=== PATIENT | male | born 1990 | race Caucasian/White ===

== ENCOUNTER 2017-05-26 20:16 | Emergency (ER) | payer OTHER ==
[~2017-05-26] VITALS: Ht 182.9 cm; Wt 56.7 kg
[~2017-05-26 20:16] MED LIST: ACET325; ACYC800 PO; ALBU90OI6 INH; AZIT250 PO; CHLO25 PO; CYCL10 PO; Cleocin HCl300 MG PO; DIPATR PO; ERGO400 PO; HYDACE5 PO; HYDACE5325 PO; HYOS.125; IBUP200; IBUP600 PO; LOPE2C PO; LORA.5 PO; LYSINE PO; MONT5TCH; ONDA4 PO; ONDA4ODT MM; ONDA8ODT MM; OXYACE5T PO; Omeprazole20 M1 PO; PENVK500; PROM25 PO; RXALBOI INH; RXHYD5325 PO; RXHYDGUAS PO; RXONDA4ODT MM; RXOXYACE PO; RXTRAM50 PO; TRAM50 PO; TYLENOL PM PO; Zithromax250 MG PO; Zofran Odt4 MG PO; Zofran Odt4 MG SL; [UNRECOGNIZED DRUG - CODE]; [UNRECOGNIZED DRUG - OTHER]; [UNRECOGNIZED DRUG - REMARK]; imodium PO
[2017-05-26 22:40] LABS: Calcium, Ionized (POC) 1.24 mmol/L (1.10-1.46); Chloride (POC) 103 mmol/L (98-108); Creatinine (POC) 0.7 mg/dL (0.8-1.3); Glucose (ISTAT POC) 90 mg/dL (70-99); Hemoglobin (POC) 14.6 g/dL (13.5-17.5); Potassium (POC) 4.8 mmol/L (3.5-5.5); Sodium (POC) 143 mmol/L (135-148); Total CO2 (POC) 29 mmol/L (21-32)
== END 2017-05-26 23:20 | disposition home or self-care (01) ==
LOC: ER 20:16
PROVIDERS: Emergency Medicine
DX: R42 Dizziness and giddiness (principal); R51 Headache; H53.8 Other visual disturbances; G93.89 Other specified disorders of brain; Z88.0 Allergy status to penicillin; Z88.8 Allergy status to other drugs, medicaments and biological substances; Z79.899 Other long term (current) drug therapy; F41.9 Anxiety disorder, unspecified
CPT/HCPCS: 36415; 70450; 80047; 85014; 99284

== ENCOUNTER 2017-11-15 15:06 | Emergency (ER) | payer OTHER ==
[~2017-11-15] VITALS: Ht 182.9 cm; Wt 54.4 kg
[2017-11-15 15:28] LABS: Source, Urine Clean Catch
[2017-11-15 15:29] LABS: BASOPHILS ABSOLUTE AUTO 0.07 K/mm3 (0.00-0.23); BASOPHILS PERCENT AUTO 1 % (0-2); EOSINOPHILS ABSOLUTE AUTO 0.08 K/mm3 (0.00-0.68); EOSINOPHILS PERCENT AUTO 1 % (0-6); Hematocrit 44.5 % (37.0-53.0); IMMATURE GRAN ABSOLUTE AUTO 0.01 K/mm3 (0.00-0.10); IMMATURE GRAN PERCENT AUTO 0 % (0-1); LYMPHOCYTES PERCENT AUTO 30 % (21-46); MONOCYTES ABSOLUTE AUTO 0.42 K/mm3 (0.16-1.47); MONOCYTES PERCENT AUTO 6 % (4-13); Mean Corpuscular HGB 30.1 pg (26.0-34.0); Mean Corpuscular HGB Conc 33.7 g/dL (31.5-36.5); Mean Corpuscular Volume 89 fL (80-100); Mean Platelet Volume 10.4 fL (9.1-12.4); NEUTROPHILS ABSOLUTE AUTO 4.07 K/mm3 (1.96-9.15); NEUTROPHILS PERCENT AUTO 61 % (41-73); Platelet Count 297 K/mm3 (150-400); RDW Coefficient Variation 12.2 % (11.7-14.2); RDW Standard Deviation 39.7 fL (35.1-46.3); Red Blood Cell Count 4.98 M/mm3 (4.30-5.90); White Blood Cell Count 6.65 K/mm3 (4.00-11.30)
[2017-11-15 15:31] LABS: Appearance, Urine Cloudy (Clear); Bilirubin, Urine Neg (Neg); Blood, Urine Neg (Neg); Color, Urine Yellow (P-Yellow); Glucose Qualitative, Urine Neg (Neg); Ketones, Urine Neg (Neg); Leukocyte Esterase, Urine Neg (Neg); Nitrite, Urine Neg (Neg); Protein, Urine Neg (Neg); Specific Gravity, Urine 1.015 (1.003-1.022); Urobilinogen, Urine NORM (Normal)
[2017-11-15 15:40] LABS: Amorphous Heavy (0-Heavy); Bacteria Rare /hpf; Red Blood Cells, Urine Not Seen /hpf (0-2); Squamous Epithelial Cells Not Seen /hpf (Few); White Blood Cells, Urine Not Seen /hpf (0-5)
[2017-11-15 16:01] LABS: Alanine Aminotransfer (ALT/SGP 29 U/L (12-78); Albumin, Blood 4.5 g/dL (3.4-5.0); Albumin/Globulin Ratio 1.5 (0.8-1.8); Alk Phos 45 U/L (50-136); Anion Gap 5 mmol/L (6-16); Aspartate Aminotrans (AST/SGOT 18 U/L (12-37); Blood Urea Nitrogen 10 mg/dL (8-24); CO2, Blood 30 mmol/L (21-32); Chloride, Blood 106 mmol/L (98-108); Creatinine, Blood 0.91 mg/dL (0.60-1.20); Globulin, Blood 3.1 g/dL (2.2-4.0); Glomerular Filtration Rate >60 (60-); Glucose, Blood 109 mg/dL (70-99); Potassium, Blood 4.6 mmol/L (3.5-5.5); Sodium, Blood 141 mmol/L (136-145); Total Protein, Blood 7.6 g/dL (6.4-8.2)
[2017-11-15] MEDS ORDERED: DESV50 PO (16:30)
[2017-11-15] MEDS ORDERED: ALPR.25 PO (16:31)
[2017-11-15] MEDS ORDERED: Loperamide2 MG PO (19:22)
== END 2017-11-15 19:49 | disposition home or self-care (01) ==
LOC: ER 15:06
PROVIDERS: Internal Medicine
DX: K52.9 Noninfective gastroenteritis and colitis, unspecified (principal); F41.9 Anxiety disorder, unspecified; F17.220 Nicotine dependence, chewing tobacco, uncomplicated; Z79.899 Other long term (current) drug therapy
CPT/HCPCS: 36415; 76705; 80053; 81001; 83690; 85025; 99284-25

== ENCOUNTER 2018-10-02 21:27 | Emergency (ER) | payer OTHER ==
[~2018-10-02] VITALS: Ht 182.9 cm; Wt 54.4 kg
[~2018-10-02 21:27] MED LIST changes: +ALPR.25 PO; +DESV50 PO; +Loperamide2 MG PO
== END 2018-10-02 23:23 | disposition home or self-care (01) ==
LOC: ER 21:27
DX: I88.9 Nonspecific lymphadenitis, unspecified (principal); F41.9 Anxiety disorder, unspecified; Z88.0 Allergy status to penicillin
CPT/HCPCS: 36415; 99282

== ENCOUNTER → 2018-11-19 | Outpatient (CLI) | payer OTHER ==
[2018-11-19 14:40] LABS: U Amphetamine Screen Not Detected; U Barbituate Screen Not Detected; U Benzodiazapine Screen Not Detected; U Buprenorphine Screen Not Detected; U Cannabinoids Screen DETECTED; U Cocaine Screen Not Detected; U Methadone Screen Not Detected; U Methamphetamine Screen Not Detected; U Opiates Screen Not Detected; U Oxycodone Screen Not Detected; U Phencyclidine Screen Not Detected; U Propoxyphene Screen Not Detected
== END | disposition home or self-care (01) ==
LOC: LAB SHORT 10:00 → LAB 10:00
PROVIDERS: Registered Nurse Psychiatric/Mental Health
DX: Z51.81 Encounter for therapeutic drug level monitoring (principal); Z79.899 Other long term (current) drug therapy

== ENCOUNTER 2019-02-08 12:08 | Emergency (ER) | payer OTHER ==
[~2019-02-08] VITALS: Ht 182.9 cm; Wt 54.4 kg
[2019-02-08 13:00] LABS: BASOPHILS ABSOLUTE AUTO 0.08 K/mm3 (0.00-0.23); BASOPHILS PERCENT AUTO 1 % (0-2); EOSINOPHILS ABSOLUTE AUTO 0.08 K/mm3 (0.00-0.68); EOSINOPHILS PERCENT AUTO 1 % (0-6); Hematocrit 45.9 % (37.0-53.0); Hemoglobin 15.2 g/dL (13.5-17.5); IMMATURE GRAN ABSOLUTE AUTO 0.01 K/mm3 (0.00-0.10); IMMATURE GRAN PERCENT AUTO 0 % (0-1); LYMPHOCYTES ABSOLUTE AUTO 0.83 K/mm3 (0.84-5.20); LYMPHOCYTES PERCENT AUTO 12 % (21-46); MONOCYTES ABSOLUTE AUTO 0.67 K/mm3 (0.16-1.47); MONOCYTES PERCENT AUTO 10 % (4-13); Mean Corpuscular HGB 29.9 pg (26.0-34.0); Mean Corpuscular HGB Conc 33.1 g/dL (31.5-36.5); Mean Corpuscular Volume 90 fL (80-100); Mean Platelet Volume 10.2 fL (9.1-12.4); NEUTROPHILS ABSOLUTE AUTO 5.41 K/mm3 (1.96-9.15); NEUTROPHILS PERCENT AUTO 77 % (41-73); Platelet Count 256 K/mm3 (150-400); RDW Coefficient Variation 12.4 % (11.7-14.2); RDW Standard Deviation 40.8 fL (35.1-46.3); Red Blood Cell Count 5.09 M/mm3 (4.30-5.90); White Blood Cell Count 7.08 K/mm3 (4.00-11.30)
[2019-02-08 13:28] LABS: Alanine Aminotransfer (ALT/SGP 59 U/L (12-78); Albumin, Blood 4.7 g/dL (3.4-5.0); Albumin/Globulin Ratio 1.3 (0.8-1.8); Alk Phos 53 U/L (50-136); Anion Gap 5 mmol/L (6-16); Aspartate Aminotrans (AST/SGOT 30 U/L (12-37); Bilirubin, Total 0.7 mg/dL (0.1-1.0); Blood Urea Nitrogen 8 mg/dL (8-24); Bun/Creatinine Ratio 10.1 (12.0-20.0); CO2, Blood 27 mmol/L (21-32); Calcium, Blood 9.2 mg/dL (8.5-10.1); Chloride, Blood 109 mmol/L (98-108); Creatinine, Blood 0.79 mg/dL (0.60-1.20); Globulin, Blood 3.5 g/dL (2.2-4.0); Glomerular Filtration Rate >60 (60-); Glucose, Blood 94 mg/dL (70-99); Potassium, Blood 4.2 mmol/L (3.5-5.5); Sodium, Blood 141 mmol/L (136-145); Total Protein, Blood 8.2 g/dL (6.4-8.2)
== END 2019-02-08 15:37 | disposition left against medical advice (07) ==
LOC: ER 12:08
PROVIDERS: Physician Assistant
DX: Z53.21 Procedure and treatment not carried out due to patient leaving prior to being seen by health care provider (principal)
CPT/HCPCS: 36415; 71046; 80053; 84484; 85025; 99283-25

== ENCOUNTER 2019-07-17 12:37 | Emergency (ER) | payer OTHER ==
[~2019-07-17] VITALS: Ht 182.9 cm; Wt 56.7 kg
[2019-07-17] MEDS ORDERED: METPHE20 PO (15:31)
[2019-07-17] MEDS ORDERED: XANAX0.25 MG PO (15:31)
[2019-07-17] MEDS ORDERED: OMEPRAZOLE MAGN20 MG PO (16:04)
== END 2019-07-17 16:18 | disposition home or self-care (01) ==
LOC: ER 12:37
DX: R07.9 Chest pain, unspecified (principal); Z88.0 Allergy status to penicillin; F41.9 Anxiety disorder, unspecified; Z79.899 Other long term (current) drug therapy
CPT/HCPCS: 36415; 71046; 84484; 93005; 93010; 99285-25

== ENCOUNTER → 2020-08-04 | Outpatient (CLI) | payer OTHER ==
[~2020-08-04] MED LIST changes: +METPHE20 PO; +OMEPRAZOLE MAGN20 MG PO; +XANAX0.25 MG PO
[2020-08-04 16:23] LABS: BASOPHILS ABSOLUTE AUTO 0.08 K/mm3 (0.00-0.23); BASOPHILS PERCENT AUTO 1 % (0-2); EOSINOPHILS ABSOLUTE AUTO 0.14 K/mm3 (0.00-0.68); EOSINOPHILS PERCENT AUTO 2 % (0-6); Hematocrit 44.8 % (37.0-53.0); Hemoglobin 15.2 g/dL (13.5-17.5); IMMATURE GRAN ABSOLUTE AUTO 0.02 K/mm3 (0.00-0.10); IMMATURE GRAN PERCENT AUTO 0 % (0-1); LYMPHOCYTES ABSOLUTE AUTO 1.97 K/mm3 (0.84-5.20); LYMPHOCYTES PERCENT AUTO 24 % (21-46); MONOCYTES ABSOLUTE AUTO 0.53 K/mm3 (0.16-1.47); MONOCYTES PERCENT AUTO 6 % (4-13); Mean Corpuscular HGB 30.6 pg (26.0-34.0); Mean Corpuscular HGB Conc 33.9 g/dL (31.5-36.5); Mean Corpuscular Volume 90 fL (80-100); Mean Platelet Volume 10.2 fL (9.1-12.4); NEUTROPHILS ABSOLUTE AUTO 5.65 K/mm3 (1.96-9.15); NEUTROPHILS PERCENT AUTO 67 % (41-73); Platelet Count 311 K/mm3 (150-400); RDW Coefficient Variation 12.3 % (11.7-14.2); RDW Standard Deviation 40.2 fL (35.1-46.3); Red Blood Cell Count 4.97 M/mm3 (4.30-5.90); White Blood Cell Count 8.39 K/mm3 (4.00-11.30)
[2020-08-04 16:36] LABS: Alanine Aminotransfer (ALT/SGP 23 U/L (12-78); Albumin, Blood 4.8 g/dL (3.4-5.0); Albumin/Globulin Ratio 1.5 (0.8-1.8); Alk Phos 49 U/L (40-126); Anion Gap 5 mmol/L (6-16); Aspartate Aminotrans (AST/SGOT 16 U/L (12-37); Bilirubin, Total 0.4 mg/dL (0.1-1.0); Blood Urea Nitrogen 9 mg/dL (8-24); Bun/Creatinine Ratio 11.4 (12.0-20.0); CO2, Blood 32 mmol/L (21-32); Calcium, Blood 9.6 mg/dL (8.5-10.1); Chloride, Blood 102 mmol/L (98-108); Creatinine, Blood 0.79 mg/dL (0.60-1.20); Globulin, Blood 3.1 g/dL (2.2-4.0); Glomerular Filtration Rate >60 (60-); Glucose, Blood 87 mg/dL (70-99); Potassium, Blood 4.4 mmol/L (3.5-5.5); Sodium, Blood 139 mmol/L (136-145); Total Protein, Blood 7.9 g/dL (6.4-8.2)
== END ==
LOC: LAB SHORT 16:17 → LAB 16:17
PROVIDERS: Chiropractor
DX: R10.11 Right upper quadrant pain (principal)
CPT/HCPCS: 80053; 83690; 85025

== ENCOUNTER 2020-08-18 19:35 | Emergency (ER) | payer MEDICARE, OTHER ==
[~2020-08-18] VITALS: Ht 182.9 cm; Wt 56.7 kg
[2020-08-18 20:12] LABS: BASOPHILS ABSOLUTE AUTO 0.07 K/mm3 (0.00-0.23); BASOPHILS PERCENT AUTO 1 % (0-2); EOSINOPHILS ABSOLUTE AUTO 0.08 K/mm3 (0.00-0.68); EOSINOPHILS PERCENT AUTO 1 % (0-6); Hematocrit 42.3 % (37.0-53.0); Hemoglobin 14.4 g/dL (13.5-17.5); IMMATURE GRAN ABSOLUTE AUTO 0.01 K/mm3 (0.00-0.10); IMMATURE GRAN PERCENT AUTO 0 % (0-1); LYMPHOCYTES ABSOLUTE AUTO 2.23 K/mm3 (0.84-5.20); LYMPHOCYTES PERCENT AUTO 28 % (21-46); MONOCYTES ABSOLUTE AUTO 0.62 K/mm3 (0.16-1.47); MONOCYTES PERCENT AUTO 8 % (4-13); Mean Corpuscular HGB 30.9 pg (26.0-34.0); Mean Corpuscular Volume 91 fL (80-100); Mean Platelet Volume 10.2 fL (9.1-12.4); NEUTROPHILS ABSOLUTE AUTO 5.04 K/mm3 (1.96-9.15); NEUTROPHILS PERCENT AUTO 63 % (41-73); Platelet Count 260 K/mm3 (150-400); RDW Coefficient Variation 12.3 % (11.7-14.2); RDW Standard Deviation 40.5 fL (35.1-46.3); Red Blood Cell Count 4.66 M/mm3 (4.30-5.90); White Blood Cell Count 8.05 K/mm3 (4.00-11.30)
[2020-08-18 20:31] LABS: Alanine Aminotransfer (ALT/SGP 25 U/L (12-78); Albumin, Blood 4.4 g/dL (3.4-5.0); Albumin/Globulin Ratio 1.4 (0.8-1.8); Alk Phos 38 U/L (50-136); Anion Gap 6 mmol/L (6-16); Aspartate Aminotrans (AST/SGOT 20 U/L (12-37); Bilirubin, Total 0.7 mg/dL (0.1-1.0); Blood Urea Nitrogen 12 mg/dL (8-24); Bun/Creatinine Ratio 13.5 (12.0-20.0); CO2, Blood 28 mmol/L (21-32); Calcium, Blood 9.5 mg/dL (8.5-10.1); Chloride, Blood 108 mmol/L (98-108); Creatinine, Blood 0.89 mg/dL (0.60-1.20); Globulin, Blood 3.2 g/dL (2.2-4.0); Glomerular Filtration Rate >60 (60-); Glucose, Blood 84 mg/dL (70-99); Potassium, Blood 3.7 mmol/L (3.5-5.5); Sodium, Blood 142 mmol/L (136-145); Total Protein, Blood 7.6 g/dL (6.4-8.2)
== END 2020-08-18 23:24 | disposition home or self-care (01) ==
LOC: ER 19:35
PROVIDERS: Physician Assistant
DX: K29.70 Gastritis, unspecified, without bleeding (principal); F17.220 Nicotine dependence, chewing tobacco, uncomplicated; Z88.0 Allergy status to penicillin; Z88.8 Allergy status to other drugs, medicaments and biological substances; Z79.899 Other long term (current) drug therapy
CPT/HCPCS: 36415; 80053; 83690; 85025; 99283; A9270

== ENCOUNTER 2020-09-11 21:33 | Emergency (ER) | payer MEDICARE, OTHER | END 2020-09-12 00:10 | disposition left against medical advice (07) | LOC: ER 21:33 | DX: Z53.21 Procedure and treatment not carried out due to patient leaving prior to being seen by health care provider (principal) ==

== ENCOUNTER 2020-10-12 12:16 | Emergency (ER) | payer MEDICARE, OTHER ==
[~2020-10-12] VITALS: Ht 182.9 cm; Wt 55.3 kg
[2020-10-12 13:18] LABS: BASOPHILS ABSOLUTE AUTO 0.09 K/mm3 (0.00-0.23); BASOPHILS PERCENT AUTO 1 % (0-2); EOSINOPHILS ABSOLUTE AUTO 0.08 K/mm3 (0.00-0.68); EOSINOPHILS PERCENT AUTO 1 % (0-6); Hematocrit 44.1 % (37.0-53.0); IMMATURE GRAN ABSOLUTE AUTO 0.02 K/mm3 (0.00-0.10); IMMATURE GRAN PERCENT AUTO 0 % (0-1); LYMPHOCYTES ABSOLUTE AUTO 2.06 K/mm3 (0.84-5.20); LYMPHOCYTES PERCENT AUTO 26 % (21-46); MONOCYTES ABSOLUTE AUTO 0.62 K/mm3 (0.16-1.47); MONOCYTES PERCENT AUTO 8 % (4-13); Mean Corpuscular HGB 30.1 pg (26.0-34.0); Mean Corpuscular Volume 88 fL (80-100); Mean Platelet Volume 10.4 fL (9.1-12.4); NEUTROPHILS PERCENT AUTO 64 % (41-73); Platelet Count 276 K/mm3 (150-400); RDW Coefficient Variation 11.7 % (11.7-14.2); RDW Standard Deviation 37.2 fL (35.1-46.3); Red Blood Cell Count 4.99 M/mm3 (4.30-5.90); White Blood Cell Count 7.97 K/mm3 (4.00-11.30)
[2020-10-12 13:45] LABS: Alanine Aminotransfer (ALT/SGP 29 U/L (12-78); Albumin, Blood 4.7 g/dL (3.4-5.0); Albumin/Globulin Ratio 1.4 (0.8-1.8); Alk Phos 51 U/L (50-136); Anion Gap 4 mmol/L (6-16); Aspartate Aminotrans (AST/SGOT 19 U/L (12-37); Bilirubin, Total 0.5 mg/dL (0.1-1.0); Blood Urea Nitrogen 9 mg/dL (8-24); Bun/Creatinine Ratio 11.2 (12.0-20.0); CO2, Blood 28 mmol/L (21-32); Chloride, Blood 107 mmol/L (98-108); Creatinine, Blood 0.81 mg/dL (0.60-1.20); Globulin, Blood 3.4 g/dL (2.2-4.0); Glomerular Filtration Rate >60 (60-); Glucose, Blood 89 mg/dL (70-99); Potassium, Blood 3.9 mmol/L (3.5-5.5); Sodium, Blood 139 mmol/L (136-145); Total Protein, Blood 8.1 g/dL (6.4-8.2)
[2020-10-12] MEDS ORDERED: SUCR1 PO (13:46)
[2020-10-12] MEDS ORDERED: DICY20 PO (13:46)
== END 2020-10-12 14:40 | disposition home or self-care (01) ==
LOC: ER 12:16
PROVIDERS: Emergency Medicine
DX: R10.11 Right upper quadrant pain (principal); R10.13 Epigastric pain; R19.7 Diarrhea, unspecified; Z88.0 Allergy status to penicillin; Z88.8 Allergy status to other drugs, medicaments and biological substances; Z79.899 Other long term (current) drug therapy
CPT/HCPCS: 36415; 80053; 83690; 85025; 99283; A9270

== ENCOUNTER 2021-04-19 06:52 | Day surgery (SDC) | payer MEDICARE, OTHER ==
[~2021-04-19] VITALS: Ht 182.9 cm; Wt 57.0 kg
[~2021-04-19 06:52] MED LIST changes: +Bentyl20 MG PO; +DICY20 PO; +OMEP20ER PO; +SERT50 PO; +SUCR1 PO
[2021-04-19] MEDS ORDERED: ALPR.5 PO (07:15)
== END 2021-04-19 09:25 | disposition home or self-care (01) ==
LOC: ORSCSDS 06:52
PROVIDERS: Student in an Organized Health Care Education/Training Program
PROC: 0DB78ZX Excision of Stomach, Pylorus, Via Natural or Artificial Opening Endoscopic, Diagnostic (ICD-10-PCS; principal; 2021-04-19 08:15)
PROC: 0DBP8ZX Excision of Rectum, Via Natural or Artificial Opening Endoscopic, Diagnostic (ICD-10-PCS; principal; 2021-04-19 08:15)
PROC: 0DB98ZX Excision of Duodenum, Via Natural or Artificial Opening Endoscopic, Diagnostic (ICD-10-PCS; principal; 2021-04-19 08:15)
PROC: 0DBE8ZX Excision of Large Intestine, Via Natural or Artificial Opening Endoscopic, Diagnostic (ICD-10-PCS; principal; 2021-04-19 08:15)
PROC: 0DB58ZX Excision of Esophagus, Via Natural or Artificial Opening Endoscopic, Diagnostic (ICD-10-PCS; principal; 2021-04-19 08:15)
DX: K92.1 Melena (principal); R19.7 Diarrhea, unspecified; K58.0 Irritable bowel syndrome with diarrhea; D12.8 Benign neoplasm of rectum; K64.8 Other hemorrhoids; K64.4 Residual hemorrhoidal skin tags; F31.9 Bipolar disorder, unspecified; Z79.899 Other long term (current) drug therapy; Z87.891 Personal history of nicotine dependence
CPT/HCPCS: 88305; 88342; J2250; J2704; J7120

== ENCOUNTER 2021-10-06 11:22 | Emergency (ER) | payer MEDICARE, OTHER ==
[~2021-10-06] VITALS: Ht 182.9 cm; Wt 57.6 kg
[~2021-10-06 11:22] MED LIST changes: +ALPR.5 PO
[2021-10-06 12:22] LABS: BASOPHILS ABSOLUTE AUTO 0.06 K/mm3 (0.00-0.23); BASOPHILS PERCENT AUTO 1 % (0-2); EOSINOPHILS ABSOLUTE AUTO 0.15 K/mm3 (0.00-0.68); EOSINOPHILS PERCENT AUTO 3 % (0-6); Hematocrit 45.7 % (37.0-53.0); Hemoglobin 15.4 g/dL (13.5-17.5); IMMATURE GRAN ABSOLUTE AUTO 0.01 K/mm3 (0.00-0.10); IMMATURE GRAN PERCENT AUTO 0 % (0-1); LYMPHOCYTES ABSOLUTE AUTO 1.45 K/mm3 (0.84-5.20); LYMPHOCYTES PERCENT AUTO 27 % (21-46); MONOCYTES PERCENT AUTO 7 % (4-13); Mean Corpuscular HGB 30.1 pg (26.0-34.0); Mean Corpuscular HGB Conc 33.7 g/dL (31.5-36.5); Mean Corpuscular Volume 89 fL (80-100); Mean Platelet Volume 10.1 fL (9.1-12.4); NEUTROPHILS PERCENT AUTO 62 % (41-73); Platelet Count 284 K/mm3 (150-400); RDW Coefficient Variation 12.3 % (11.7-14.2); RDW Standard Deviation 40.3 fL (35.1-46.3); Red Blood Cell Count 5.11 M/mm3 (4.30-5.90); White Blood Cell Count 5.37 K/mm3 (4.00-11.30)
[2021-10-06 12:46] LABS: Albumin, Blood 4.3 g/dL (3.4-5.0); Albumin/Globulin Ratio 1.2 (0.8-1.8); Bilirubin, Total 0.5 mg/dL (0.1-1.0); Bun/Creatinine Ratio 12.5 (12.0-20.0); Calcium, Blood 8.8 mg/dL (8.5-10.1); Creatinine, Blood 0.88 mg/dL (0.60-1.20); Globulin, Blood 3.5 g/dL (2.2-4.0); Potassium, Blood 4.2 mmol/L (3.5-5.5); Thyroid Stimulating Hormone 0.874 uIU/mL (0.360-4.800); Total Protein, Blood 7.8 g/dL (6.4-8.2)
== END 2021-10-06 13:24 | disposition left against medical advice (07) ==
LOC: ER 11:22
PROVIDERS: Physician Assistant
DX: R00.2 Palpitations (principal); Z53.21 Procedure and treatment not carried out due to patient leaving prior to being seen by health care provider
CPT/HCPCS: 71046; 80053; 83690; 83880; 84443; 84484; 85025; 93005; 93010

== ENCOUNTER 2021-10-08 19:12 | Emergency (ER) | payer MEDICARE, OTHER ==
[~2021-10-08] VITALS: Ht 182.9 cm; Wt 57.6 kg
[2021-10-08 23:45] LABS: Source, Urine Clean Catch
[2021-10-08 23:47] LABS: Appearance, Urine Turbid (Clear); Bilirubin, Urine Neg (Neg); Blood, Urine Neg (Neg); Glucose Qualitative, Urine Neg (Neg); Ketones, Urine Neg (Neg); Leukocyte Esterase, Urine Neg (Neg); Nitrite, Urine Neg (Neg); Protein, Urine Neg (Neg); Urobilinogen, Urine NORM (Normal)
[2021-10-08 23:55] LABS: BASOPHILS ABSOLUTE AUTO 0.09 K/mm3 (0.00-0.23); BASOPHILS PERCENT AUTO 1 % (0-2); EOSINOPHILS ABSOLUTE AUTO 0.23 K/mm3 (0.00-0.68); EOSINOPHILS PERCENT AUTO 3 % (0-6); Hematocrit 46.1 % (37.0-53.0); Hemoglobin 15.7 g/dL (13.5-17.5); IMMATURE GRAN ABSOLUTE AUTO 0.02 K/mm3 (0.00-0.10); IMMATURE GRAN PERCENT AUTO 0 % (0-1); LYMPHOCYTES ABSOLUTE AUTO 3.21 K/mm3 (0.84-5.20); LYMPHOCYTES PERCENT AUTO 35 % (21-46); MONOCYTES ABSOLUTE AUTO 0.82 K/mm3 (0.16-1.47); MONOCYTES PERCENT AUTO 9 % (4-13); Mean Corpuscular HGB 30.5 pg (26.0-34.0); Mean Corpuscular HGB Conc 34.1 g/dL (31.5-36.5); Mean Corpuscular Volume 90 fL (80-100); NEUTROPHILS ABSOLUTE AUTO 4.81 K/mm3 (1.96-9.15); NEUTROPHILS PERCENT AUTO 52 % (41-73); Platelet Count 307 K/mm3 (150-400); RDW Coefficient Variation 12.2 % (11.7-14.2); RDW Standard Deviation 40.4 fL (35.1-46.3); Red Blood Cell Count 5.14 M/mm3 (4.30-5.90); White Blood Cell Count 9.18 K/mm3 (4.00-11.30)
[2021-10-08 23:57] LABS: Color, Urine Pale Yellow (P-Yellow)
[2021-10-09 00:14] LABS: Albumin, Blood 4.7 g/dL (3.4-5.0); Albumin/Globulin Ratio 1.3 (0.8-1.8); Bilirubin, Total 0.6 mg/dL (0.1-1.0); Bun/Creatinine Ratio 13.5 (12.0-20.0); Calcium, Blood 9.1 mg/dL (8.5-10.1); Creatinine, Blood 0.81 mg/dL (0.60-1.20); Globulin, Blood 3.5 g/dL (2.2-4.0); Total Protein, Blood 8.2 g/dL (6.4-8.2)
[2021-10-09 00:25] LABS: Amorphous Heavy (0-Heavy); Bacteria Rare /hpf; Red Blood Cells, Urine 0-2 /hpf (0-2); Squamous Epithelial Cells Not Seen /hpf (Few); White Blood Cells, Urine 0-2 /hpf (0-5)
== END 2021-10-09 03:11 | disposition home or self-care (01) ==
LOC: ER 19:12
PROVIDERS: Student in an Organized Health Care Education/Training Program
DX: R00.2 Palpitations (principal); R55 Syncope and collapse; Z88.0 Allergy status to penicillin; Z88.8 Allergy status to other drugs, medicaments and biological substances; Z79.899 Other long term (current) drug therapy
CPT/HCPCS: 36415; 71046; 80053; 81001; 84484; 85025; 93005; 93010; 99285-25

== ENCOUNTER → 2021-10-10 | Outpatient (CLI) | payer MEDICARE, OTHER | END | disposition home or self-care (01) | LOC: LAB SHORT 13:30 | DX: R35.0 Frequency of micturition (principal) | CPT/HCPCS: 87086 ==

== ENCOUNTER → 2022-04-09 | Outpatient (CLI) | payer MEDICARE, OTHER ==
[2022-04-09 11:23] LABS: BASOPHILS ABSOLUTE AUTO 0.06 K/mm3 (0.00-0.23); BASOPHILS PERCENT AUTO 1 % (0-2); EOSINOPHILS ABSOLUTE AUTO 0.22 K/mm3 (0.00-0.68); EOSINOPHILS PERCENT AUTO 4 % (0-6); Hematocrit 43.2 % (37.0-53.0); Hemoglobin 14.9 g/dL (13.5-17.5); IMMATURE GRAN ABSOLUTE AUTO 0.01 K/mm3 (0.00-0.10); IMMATURE GRAN PERCENT AUTO 0 % (0-1); LYMPHOCYTES ABSOLUTE AUTO 1.81 K/mm3 (0.84-5.20); LYMPHOCYTES PERCENT AUTO 29 % (21-46); MONOCYTES ABSOLUTE AUTO 0.41 K/mm3 (0.16-1.47); MONOCYTES PERCENT AUTO 7 % (4-13); Mean Corpuscular HGB 30.6 pg (26.0-34.0); Mean Corpuscular HGB Conc 34.5 g/dL (31.5-36.5); Mean Corpuscular Volume 89 fL (80-100); Mean Platelet Volume 9.9 fL (9.1-12.4); NEUTROPHILS ABSOLUTE AUTO 3.68 K/mm3 (1.96-9.15); NEUTROPHILS PERCENT AUTO 59 % (41-73); Platelet Count 384 K/mm3 (150-400); RDW Coefficient Variation 12.4 % (11.7-14.2); RDW Standard Deviation 40.6 fL (35.1-46.3); Red Blood Cell Count 4.87 M/mm3 (4.30-5.90); White Blood Cell Count 6.19 K/mm3 (4.00-11.30)
[2022-04-09 11:32] LABS: Albumin, Blood 4.7 g/dL (3.4-5.0); Albumin/Globulin Ratio 1.4 (0.8-1.8); Bilirubin, Total 0.7 mg/dL (0.1-1.0); Calcium, Blood 9.5 mg/dL (8.5-10.1); Creatinine, Blood 0.8 mg/dL (0.60-1.20); Globulin, Blood 3.4 g/dL (2.2-4.0); Potassium, Blood 4.1 mmol/L (3.5-5.5); Total Protein, Blood 8.1 g/dL (6.4-8.2)
== END ==
LOC: LAB 11:18 → LAB SHORT 11:18
PROVIDERS: Physician Assistant Medical
DX: R10.11 Right upper quadrant pain (principal); R53.83 Other fatigue
CPT/HCPCS: 80053; 84443; 85025

== ENCOUNTER 2022-04-25 11:51 | Emergency (ER) | payer MEDICARE, OTHER ==
[~2022-04-25] VITALS: Ht 182.9 cm; Wt 54.4 kg
== END 2022-04-25 13:27 | disposition home or self-care (01) ==
LOC: ER 11:51
DX: G43.909 Migraine, unspecified, not intractable, without status migrainosus (principal)
CPT/HCPCS: 99282

== ENCOUNTER 2022-04-29 19:46 | Emergency (ER) | payer MEDICARE, OTHER ==
[~2022-04-29] VITALS: Ht 182.9 cm; Wt 53.1 kg
[2022-04-29 20:19] LABS: Source, Urine Clean Catch
[2022-04-29 20:21] LABS: BASOPHILS ABSOLUTE AUTO 0.12 K/mm3 (0.00-0.23); BASOPHILS PERCENT AUTO 1 % (0-2); EOSINOPHILS ABSOLUTE AUTO 0.29 K/mm3 (0.00-0.68); EOSINOPHILS PERCENT AUTO 3 % (0-6); Hematocrit 41.5 % (37.0-53.0); Hemoglobin 14.3 g/dL (13.5-17.5); IMMATURE GRAN ABSOLUTE AUTO 0.01 K/mm3 (0.00-0.10); IMMATURE GRAN PERCENT AUTO 0 % (0-1); LYMPHOCYTES ABSOLUTE AUTO 2.96 K/mm3 (0.84-5.20); LYMPHOCYTES PERCENT AUTO 33 % (21-46); MONOCYTES PERCENT AUTO 8 % (4-13); Mean Corpuscular HGB 30.4 pg (26.0-34.0); Mean Corpuscular HGB Conc 34.5 g/dL (31.5-36.5); Mean Corpuscular Volume 88 fL (80-100); NEUTROPHILS ABSOLUTE AUTO 4.96 K/mm3 (1.96-9.15); NEUTROPHILS PERCENT AUTO 55 % (41-73); Platelet Count 270 K/mm3 (150-400); RDW Coefficient Variation 12.4 % (11.7-14.2); RDW Standard Deviation 40.2 fL (35.1-46.3); Red Blood Cell Count 4.71 M/mm3 (4.30-5.90); White Blood Cell Count 9.04 K/mm3 (4.00-11.30)
[2022-04-29 20:30] LABS: Bilirubin, Urine Neg (Neg); Blood, Urine Neg (Neg); Glucose Qualitative, Urine Neg (Neg); Ketones, Urine Neg (Neg); Leukocyte Esterase, Urine Neg (Neg); Nitrite, Urine Neg (Neg); Protein, Urine Neg (Neg); Urobilinogen, Urine NORM (Normal)
[2022-04-29 20:45] LABS: Appearance, Urine Hazy (Clear); Color, Urine Yellow (P-Yellow)
[2022-04-29 20:47] LABS: Amorphous Mod (0-Heavy); Bacteria Not Seen /hpf; Red Blood Cells, Urine 0-2 /hpf (0-2); Squamous Epithelial Cells Not Seen /hpf (Few); White Blood Cells, Urine 0-2 /hpf (0-5)
[2022-04-29 21:11] LABS: Acetaminophen, Random <2.0 ug/mL (10.0-30.0); Alanine Aminotransfer (ALT/SGP 39 U/L (12-78); Albumin, Blood 4.4 g/dL (3.4-5.0); Albumin/Globulin Ratio 1.5 (0.8-1.8); Alk Phos 58 U/L (50-136); Anion Gap 5 mmol/L (6-16); Aspartate Aminotrans (AST/SGOT 23 U/L (12-37); Bilirubin, Total 0.3 mg/dL (0.1-1.0); Blood Urea Nitrogen 14 mg/dL (8-24); Bun/Creatinine Ratio 15.3 (12.0-20.0); CO2, Blood 31 mmol/L (21-32); Calcium, Blood 9.2 mg/dL (8.5-10.1); Chloride, Blood 105 mmol/L (98-108); Creatinine, Blood 0.92 mg/dL (0.60-1.20); Globulin, Blood 2.9 g/dL (2.2-4.0); Glomerular Filtration Rate 115 (60-); Glucose, Blood 98 mg/dL (70-99); Potassium, Blood 4.1 mmol/L (3.5-5.5); Sodium, Blood 141 mmol/L (136-145); Total Protein, Blood 7.3 g/dL (6.4-8.2)
== END 2022-04-29 23:11 | disposition home or self-care (01) ==
LOC: ER 19:46
PROVIDERS: Emergency Medicine
DX: R10.11 Right upper quadrant pain (principal); Z88.0 Allergy status to penicillin; Z88.8 Allergy status to other drugs, medicaments and biological substances; Z79.899 Other long term (current) drug therapy
CPT/HCPCS: 36415; 80053; 81001; 83690; 85025; G0480

== ENCOUNTER → 2022-05-03 | Outpatient (CLI) | payer MEDICARE, OTHER ==
[2022-05-03 11:41] LABS: Albumin, Blood 4.7 g/dL (3.4-5.0); Albumin/Globulin Ratio 1.4 (0.8-1.8); Bilirubin, Direct 0.2 mg/dL (0.0-0.3); Bilirubin, Indirect 0.6 mg/dL (0.1-0.7); Bilirubin, Total 0.8 mg/dL (0.1-1.0); Globulin, Blood 3.4 g/dL (2.2-4.0); Total Protein, Blood 8.1 g/dL (6.4-8.2)
== END | disposition home or self-care (01) ==
LOC: LAB SHORT 11:26
PROVIDERS: Chiropractor
DX: R10.11 Right upper quadrant pain (principal)
CPT/HCPCS: 80076

== ENCOUNTER 2022-12-13 20:29 | Emergency (ER) | payer MEDICARE, OTHER ==
[~2022-12-13] VITALS: Ht 182.9 cm; Wt 56.7 kg
[2022-12-13 20:34] VITALS: BP 130/80
== END 2022-12-13 22:25 | disposition home or self-care (01) ==
LOC: ER 20:29
DX: K76.89 Other specified diseases of liver (principal); R10.811 Right upper quadrant abdominal tenderness; Z88.0 Allergy status to penicillin; Z88.8 Allergy status to other drugs, medicaments and biological substances; Z79.899 Other long term (current) drug therapy
CPT/HCPCS: 36415; 76705; 80053; 99284-25

== ENCOUNTER 2023-01-19 08:18 | Emergency (ER) | payer MEDICARE, OTHER ==
[~2023-01-19] VITALS: Ht 182.9 cm; Wt 54.4 kg
[2023-01-19] MEDS ORDERED: ALPRAZOLAM110 PO (08:44)
[2023-01-19 09:02] LABS: BASOPHILS ABSOLUTE AUTO 0.07 K/mm3 (0.00-0.23); BASOPHILS PERCENT AUTO 0 % (0-2); EOSINOPHILS ABSOLUTE AUTO 0.25 K/mm3 (0.00-0.68); EOSINOPHILS PERCENT AUTO 2 % (0-6); Hematocrit 49.1 % (37.0-53.0); Hemoglobin 16.7 g/dL (13.5-17.5); IMMATURE GRAN ABSOLUTE AUTO 0.06 K/mm3 (0.00-0.10); IMMATURE GRAN PERCENT AUTO 0 % (0-1); LYMPHOCYTES ABSOLUTE AUTO 0.72 K/mm3 (0.84-5.20); LYMPHOCYTES PERCENT AUTO 4 % (21-46); MONOCYTES ABSOLUTE AUTO 0.91 K/mm3 (0.16-1.47); MONOCYTES PERCENT AUTO 5 % (4-13); Mean Corpuscular HGB 29.6 pg (26.0-34.0); Mean Corpuscular Volume 87 fL (80-100); Mean Platelet Volume 10.4 fL (9.1-12.4); NEUTROPHILS ABSOLUTE AUTO 14.86 K/mm3 (1.96-9.15); NEUTROPHILS PERCENT AUTO 88 % (41-73); Platelet Count 270 K/mm3 (150-400); RDW Coefficient Variation 12.3 % (11.7-14.2); RDW Standard Deviation 39.1 fL (35.1-46.3); Red Blood Cell Count 5.64 M/mm3 (4.30-5.90); White Blood Cell Count 16.87 K/mm3 (4.00-11.30)
[2023-01-19 09:37] LABS: Albumin, Blood 4.9 g/dL (3.4-5.0); Albumin/Globulin Ratio 1.4 (0.8-1.8); Bilirubin, Total 0.6 mg/dL (0.1-1.0); Bun/Creatinine Ratio 18.1 (12.0-20.0); Calcium, Blood 9.4 mg/dL (8.5-10.1); Creatinine, Blood 0.83 mg/dL (0.60-1.20); Globulin, Blood 3.5 g/dL (2.2-4.0); Potassium, Blood 4.6 mmol/L (3.5-5.5); Total Protein, Blood 8.4 g/dL (6.4-8.2)
[2023-01-19] MEDS ORDERED: ONDA4ODT MM (13:54)
[2023-01-19 14:05] VITALS: BP 111/72
== END 2023-01-19 14:09 | disposition home or self-care (01) ==
LOC: ER 08:18
PROVIDERS: Emergency Medicine
DX: R11.2 Nausea with vomiting, unspecified (principal); R10.10 Upper abdominal pain, unspecified; Z88.0 Allergy status to penicillin; Z88.8 Allergy status to other drugs, medicaments and biological substances; Z79.899 Other long term (current) drug therapy
CPT/HCPCS: 74177; 80053; 83690; 85025; 96374; 96375; 99283-25; A9270; J2405; J3010; J7030; Q9967

== ENCOUNTER → 2023-03-20 | Outpatient (CLI) | payer MEDICARE, OTHER ==
[~2023-03-20] MED LIST changes: +ALPRAZOLAM110 PO
[2023-03-20 13:10] LABS: BASOPHILS ABSOLUTE AUTO 0.08 K/mm3 (0.00-0.23); BASOPHILS PERCENT AUTO 1 % (0-2); EOSINOPHILS ABSOLUTE AUTO 0.08 K/mm3 (0.00-0.68); EOSINOPHILS PERCENT AUTO 1 % (0-6); Hematocrit 45.4 % (37.0-53.0); Hemoglobin 15.6 g/dL (13.5-17.5); IMMATURE GRAN ABSOLUTE AUTO 0.01 K/mm3 (0.00-0.10); IMMATURE GRAN PERCENT AUTO 0 % (0-1); LYMPHOCYTES ABSOLUTE AUTO 1.76 K/mm3 (0.84-5.20); LYMPHOCYTES PERCENT AUTO 29 % (21-46); MONOCYTES ABSOLUTE AUTO 0.46 K/mm3 (0.16-1.47); MONOCYTES PERCENT AUTO 8 % (4-13); Mean Corpuscular HGB 29.4 pg (26.0-34.0); Mean Corpuscular HGB Conc 34.4 g/dL (31.5-36.5); Mean Corpuscular Volume 86 fL (80-100); Mean Platelet Volume 10.2 fL (9.1-12.4); NEUTROPHILS ABSOLUTE AUTO 3.74 K/mm3 (1.96-9.15); NEUTROPHILS PERCENT AUTO 61 % (41-73); Platelet Count 316 K/mm3 (150-400); RDW Coefficient Variation 12.8 % (11.7-14.2); RDW Standard Deviation 39.8 fL (35.1-46.3); White Blood Cell Count 6.13 K/mm3 (4.00-11.30)
[2023-03-20 15:34] LABS: CHOL/HDL RATIO 3.6; Cholesterol 164 mg/dL (50-200); HDL Cholesterol 45 mg/dL (>39); LDL/HDL RATIO 2.4; Low Density Lipoprotein Chol 107 mg/dL (0-110); Triglycerides 59 mg/dL (30-140); Very Low Density Lipoprot Chol 11 mg/dL (6-28)
[2023-03-21 09:11] LABS: A/G RATIO 2.2 (1.2-2.2); BILIRUBIN, TOTAL 0.7 mg/dL (0.0-1.2); CALCIUM, SERUM 10.2 mg/dL (8.7-10.2); CREATININE, SERUM 1.05 mg/dL (0.76-1.27); GLOBULIN, TOTAL 2.4 g/dL (1.5-4.5); PROTEIN, TOTAL, SERUM 7.6 g/dL (6.0-8.5)
== END ==
LOC: LAB 10:01 → LAB SHORT 10:01 → EDSTATUS 14:55
PROVIDERS: Nurse Practitioner Family
DX: Z00.00 Encounter for general adult medical examination without abnormal findings (principal); E55.9 Vitamin D deficiency, unspecified; Z13.220 Encounter for screening for lipoid disorders
CPT/HCPCS: 36415; 80053; 80061; 82306; 84443; 85025; 87015; 87045; 87046; 87205; 87899

== ENCOUNTER → 2023-03-27 | Outpatient (CLI) | payer MEDICARE, OTHER ==
[2023-03-29 16:52] LABS: CALPROTECTIN,FECAL <5 ug/g (<=49)
== END | disposition home or self-care (01) ==
LOC: LAB SHORT 07:00 → LAB 07:00
PROVIDERS: Nurse Practitioner Family
DX: R00.2 Palpitations (principal)
CPT/HCPCS: 83993

== ENCOUNTER → 2023-04-03 | Outpatient (CLI) | payer MEDICARE, OTHER ==
[2023-04-03 16:51] LABS: BASOPHILS ABSOLUTE AUTO 0.09 K/mm3 (0.00-0.23); BASOPHILS PERCENT AUTO 1 % (0-2); EOSINOPHILS ABSOLUTE AUTO 0.16 K/mm3 (0.00-0.68); EOSINOPHILS PERCENT AUTO 2 % (0-6); Hematocrit 43.8 % (37.0-53.0); Hemoglobin 15.1 g/dL (13.5-17.5); IMMATURE GRAN ABSOLUTE AUTO 0.02 K/mm3 (0.00-0.10); IMMATURE GRAN PERCENT AUTO 0 % (0-1); LYMPHOCYTES ABSOLUTE AUTO 2.91 K/mm3 (0.84-5.20); LYMPHOCYTES PERCENT AUTO 28 % (21-46); MONOCYTES ABSOLUTE AUTO 0.87 K/mm3 (0.16-1.47); MONOCYTES PERCENT AUTO 8 % (4-13); Mean Corpuscular HGB Conc 34.5 g/dL (31.5-36.5); Mean Corpuscular Volume 87 fL (80-100); Mean Platelet Volume 10.4 fL (9.1-12.4); NEUTROPHILS ABSOLUTE AUTO 6.48 K/mm3 (1.96-9.15); NEUTROPHILS PERCENT AUTO 62 % (41-73); Platelet Count 360 K/mm3 (150-400); RDW Coefficient Variation 13.1 % (11.7-14.2); RDW Standard Deviation 40.7 fL (35.1-46.3); Red Blood Cell Count 5.03 M/mm3 (4.30-5.90); White Blood Cell Count 10.53 K/mm3 (4.00-11.30)
[2023-04-03 17:06] LABS: Albumin, Blood 4.9 g/dL (3.4-5.0); Albumin/Globulin Ratio 1.5 (0.8-1.8); Bilirubin, Total 0.6 mg/dL (0.1-1.0); Bun/Creatinine Ratio 11.4 (12.0-20.0); Calcium, Blood 9.5 mg/dL (8.5-10.1); Creatinine, Blood 1.14 mg/dL (0.60-1.20); Globulin, Blood 3.3 g/dL (2.2-4.0); Potassium, Blood 3.3 mmol/L (3.5-5.5); Total Protein, Blood 8.2 g/dL (6.4-8.2)
== END | disposition home or self-care (01) ==
LOC: LAB SHORT 16:44 → LAB 16:44
PROVIDERS: Emergency Medicine
DX: R00.2 Palpitations (principal)
CPT/HCPCS: 80053; 83880; 84484; 85025; 85379

== ENCOUNTER 2023-05-31 16:26 | Emergency (ER) | payer MEDICARE, OTHER ==
[~2023-05-31] VITALS: Ht 182.9 cm; Wt 59.0 kg
[2023-05-31 17:00] LABS: BASOPHILS ABSOLUTE AUTO 0.07 K/mm3 (0.00-0.23); BASOPHILS PERCENT AUTO 1 % (0-2); EOSINOPHILS ABSOLUTE AUTO 0.11 K/mm3 (0.00-0.68); EOSINOPHILS PERCENT AUTO 2 % (0-6); Hematocrit 42.2 % (37.0-53.0); Hemoglobin 14.4 g/dL (13.5-17.5); IMMATURE GRAN ABSOLUTE AUTO 0.01 K/mm3 (0.00-0.10); IMMATURE GRAN PERCENT AUTO 0 % (0-1); LYMPHOCYTES ABSOLUTE AUTO 2.24 K/mm3 (0.84-5.20); LYMPHOCYTES PERCENT AUTO 30 % (21-46); MONOCYTES ABSOLUTE AUTO 0.53 K/mm3 (0.16-1.47); MONOCYTES PERCENT AUTO 7 % (4-13); Mean Corpuscular HGB Conc 34.1 g/dL (31.5-36.5); Mean Corpuscular Volume 88 fL (80-100); Mean Platelet Volume 9.9 fL (9.1-12.4); NEUTROPHILS ABSOLUTE AUTO 4.41 K/mm3 (1.96-9.15); NEUTROPHILS PERCENT AUTO 60 % (41-73); Platelet Count 295 K/mm3 (150-400); RDW Coefficient Variation 12.2 % (11.7-14.2); RDW Standard Deviation 39.6 fL (35.1-46.3); White Blood Cell Count 7.37 K/mm3 (4.00-11.30)
[2023-05-31 17:29] LABS: Albumin, Blood 4.4 g/dL (3.4-5.0); Albumin/Globulin Ratio 1.4 (0.8-1.8); Bilirubin, Total 0.5 mg/dL (0.1-1.0); Bun/Creatinine Ratio 16.7 (12.0-20.0); Calcium, Blood 9.4 mg/dL (8.5-10.1); Creatinine, Blood 0.9 mg/dL (0.60-1.20); Globulin, Blood 3.2 g/dL (2.2-4.0); Potassium, Blood 4.2 mmol/L (3.5-5.5); Total Protein, Blood 7.6 g/dL (6.4-8.2)
[2023-05-31 18:24] VITALS: BP 116/82
== END 2023-05-31 19:35 | disposition home or self-care (01) ==
LOC: ER 16:26
PROVIDERS: Student in an Organized Health Care Education/Training Program
DX: R10.13 Epigastric pain (principal); Z88.0 Allergy status to penicillin; Z88.8 Allergy status to other drugs, medicaments and biological substances; Z79.899 Other long term (current) drug therapy
CPT/HCPCS: 76705; 80053; 83690; 85025; 99284-25

== ENCOUNTER 2023-06-16 21:35 | Emergency (ER) | payer MEDICARE, OTHER ==
[~2023-06-16] VITALS: Ht 182.9 cm; Wt 59.0 kg
[2023-06-16 21:45] VITALS: BP 142/94
== END 2023-06-16 22:42 | disposition home or self-care (01) ==
LOC: ER 21:35
DX: G43.909 Migraine, unspecified, not intractable, without status migrainosus (principal); F41.9 Anxiety disorder, unspecified; F32.A Depression, unspecified; F42.9 Obsessive-compulsive disorder, unspecified; Z88.0 Allergy status to penicillin; Z88.8 Allergy status to other drugs, medicaments and biological substances; Z79.899 Other long term (current) drug therapy
CPT/HCPCS: 99282

== ENCOUNTER → 2023-11-06 | Outpatient (CLI) | payer MEDICARE, OTHER ==
[2023-11-06 11:03] LABS: BASOPHILS ABSOLUTE AUTO 0.06 K/mm3 (0.00-0.23); BASOPHILS PERCENT AUTO 1 % (0-2); EOSINOPHILS ABSOLUTE AUTO 0.14 K/mm3 (0.00-0.68); EOSINOPHILS PERCENT AUTO 3 % (0-6); Hemoglobin 14.9 g/dL (13.5-17.5); IMMATURE GRAN ABSOLUTE AUTO 0.01 K/mm3 (0.00-0.10); IMMATURE GRAN PERCENT AUTO 0 % (0-1); LYMPHOCYTES ABSOLUTE AUTO 1.64 K/mm3 (0.84-5.20); LYMPHOCYTES PERCENT AUTO 29 % (21-46); MONOCYTES ABSOLUTE AUTO 0.37 K/mm3 (0.16-1.47); MONOCYTES PERCENT AUTO 7 % (4-13); Mean Corpuscular HGB 29.6 pg (26.0-34.0); Mean Corpuscular HGB Conc 33.9 g/dL (31.5-36.5); Mean Corpuscular Volume 88 fL (80-100); Mean Platelet Volume 9.9 fL (9.1-12.4); NEUTROPHILS PERCENT AUTO 60 % (41-73); Platelet Count 269 K/mm3 (150-400); RDW Coefficient Variation 12.7 % (11.7-14.2); RDW Standard Deviation 40.1 fL (35.1-46.3); Red Blood Cell Count 5.03 M/mm3 (4.30-5.90); White Blood Cell Count 5.62 K/mm3 (4.00-11.30)
[2023-11-06 11:18] LABS: Albumin, Blood 4.5 g/dL (3.4-5.0); Albumin/Globulin Ratio 1.5 (0.8-1.8); Bilirubin, Total 0.7 mg/dL (0.1-1.0); Bun/Creatinine Ratio 7.4 (12.0-20.0); Calcium, Blood 9.1 mg/dL (8.5-10.1); Creatinine, Blood 0.95 mg/dL (0.60-1.20); Globulin, Blood 3.1 g/dL (2.2-4.0); Potassium, Blood 4.3 mmol/L (3.5-5.5); Total Protein, Blood 7.6 g/dL (6.4-8.2)
== END | disposition home or self-care (01) ==
LOC: LAB 10:58 → LAB SHORT 10:58
PROVIDERS: Emergency Medicine
DX: R10.13 Epigastric pain (principal); R11.0 Nausea
CPT/HCPCS: 80053; 83690; 85025

== ENCOUNTER 2023-11-30 10:41 | Emergency (ER) | payer MEDICARE, OTHER ==
[~2023-11-30] VITALS: Ht 175.3 cm; Wt 59.0 kg
[2023-11-30] MEDS ORDERED: Ondansetron HCl 2 MG / ML 2ML Vial IV ONE (11:00)
[2023-11-30 11:29] LABS: BASOPHILS ABSOLUTE AUTO 0.09 K/mm3 (0.00-0.23); BASOPHILS PERCENT AUTO 1 % (0-2); EOSINOPHILS ABSOLUTE AUTO 0.16 K/mm3 (0.00-0.68); EOSINOPHILS PERCENT AUTO 2 % (0-6); Hematocrit 42.3 % (37.0-53.0); Hemoglobin 14.5 g/dL (13.5-17.5); IMMATURE GRAN ABSOLUTE AUTO 0.01 K/mm3 (0.00-0.10); IMMATURE GRAN PERCENT AUTO 0 % (0-1); LYMPHOCYTES ABSOLUTE AUTO 2.52 K/mm3 (0.84-5.20); LYMPHOCYTES PERCENT AUTO 32 % (21-46); MONOCYTES ABSOLUTE AUTO 0.48 K/mm3 (0.16-1.47); MONOCYTES PERCENT AUTO 6 % (4-13); Mean Corpuscular HGB 29.7 pg (26.0-34.0); Mean Corpuscular HGB Conc 34.3 g/dL (31.5-36.5); Mean Corpuscular Volume 87 fL (80-100); Mean Platelet Volume 10.1 fL (9.1-12.4); NEUTROPHILS ABSOLUTE AUTO 4.74 K/mm3 (1.96-9.15); NEUTROPHILS PERCENT AUTO 59 % (41-73); Platelet Count 274 K/mm3 (150-400); RDW Coefficient Variation 12.2 % (11.7-14.2); RDW Standard Deviation 38.6 fL (35.1-46.3); Red Blood Cell Count 4.88 M/mm3 (4.30-5.90)
[2023-11-30 11:47] LABS: Albumin, Blood 4.3 g/dL (3.4-5.0); Albumin/Globulin Ratio 1.6 (0.8-1.8); Bilirubin, Total 0.5 mg/dL (0.1-1.0); Bun/Creatinine Ratio 15.2 (12.0-20.0); Calcium, Blood 9.4 mg/dL (8.5-10.1); Creatinine, Blood 0.92 mg/dL (0.60-1.20); Globulin, Blood 2.7 g/dL (2.2-4.0); Potassium, Blood 4.3 mmol/L (3.5-5.5)
[2023-11-30 12:15] VITALS: BP 123/77
== END 2023-11-30 14:00 | disposition home or self-care (01) ==
LOC: ER 10:41
PROVIDERS: Physician Assistant
DX: R10.31 Right lower quadrant pain (principal); F32.A Depression, unspecified; Z88.0 Allergy status to penicillin; Z88.8 Allergy status to other drugs, medicaments and biological substances; Z79.899 Other long term (current) drug therapy
CPT/HCPCS: 76705; 80053; 83690; 85025; 99284-25

== ENCOUNTER 2024-01-21 08:43 | Emergency (ER) | payer MEDICARE, OTHER ==
[~2024-01-21] VITALS: Ht 182.9 cm; Wt 65.8 kg
[2024-01-21 10:47] LABS: BASOPHILS ABSOLUTE AUTO 0.06 K/mm3 (0.00-0.23); BASOPHILS PERCENT AUTO 1 % (0-2); EOSINOPHILS ABSOLUTE AUTO 0.13 K/mm3 (0.00-0.68); EOSINOPHILS PERCENT AUTO 2 % (0-6); Hematocrit 43.7 % (37.0-53.0); IMMATURE GRAN ABSOLUTE AUTO 0.01 K/mm3 (0.00-0.10); IMMATURE GRAN PERCENT AUTO 0 % (0-1); LYMPHOCYTES ABSOLUTE AUTO 1.73 K/mm3 (0.84-5.20); LYMPHOCYTES PERCENT AUTO 29 % (21-46); MONOCYTES ABSOLUTE AUTO 0.41 K/mm3 (0.16-1.47); MONOCYTES PERCENT AUTO 7 % (4-13); Mean Corpuscular HGB 30.1 pg (26.0-34.0); Mean Corpuscular HGB Conc 34.3 g/dL (31.5-36.5); Mean Corpuscular Volume 88 fL (80-100); NEUTROPHILS ABSOLUTE AUTO 3.61 K/mm3 (1.96-9.15); NEUTROPHILS PERCENT AUTO 61 % (41-73); Platelet Count 267 K/mm3 (150-400); RDW Coefficient Variation 12.6 % (11.7-14.2); RDW Standard Deviation 40.8 fL (35.1-46.3); Red Blood Cell Count 4.98 M/mm3 (4.30-5.90); White Blood Cell Count 5.95 K/mm3 (4.00-11.30)
[2024-01-21 10:59] VITALS: BP 119/84
[2024-01-21 11:14] LABS: Albumin, Blood 4.4 g/dL (3.4-5.0); Albumin/Globulin Ratio 1.5 (0.8-1.8); Bilirubin, Total 0.9 mg/dL (0.1-1.0); Bun/Creatinine Ratio 14.8 (12.0-20.0); Calcium, Blood 9.3 mg/dL (8.5-10.1); Creatinine, Blood 0.95 mg/dL (0.60-1.20); Potassium, Blood 4.8 mmol/L (3.5-5.5); Total Protein, Blood 7.4 g/dL (6.4-8.2)
== END 2024-01-21 11:02 | disposition left against medical advice (07) ==
LOC: ER 08:43
PROVIDERS: Emergency Medicine
DX: R10.11 Right upper quadrant pain (principal); R11.10 Vomiting, unspecified; Z53.21 Procedure and treatment not carried out due to patient leaving prior to being seen by health care provider
CPT/HCPCS: 80053; 83690; 85025; 99282

== ENCOUNTER → 2024-02-02 | Outpatient (CLI) | payer MEDICARE, OTHER ==
[2024-02-02 17:52] LABS: BASOPHILS ABSOLUTE AUTO 0.09 K/mm3 (0.00-0.23); BASOPHILS PERCENT AUTO 1 % (0-2); EOSINOPHILS ABSOLUTE AUTO 0.16 K/mm3 (0.00-0.68); EOSINOPHILS PERCENT AUTO 2 % (0-6); Hematocrit 46.6 % (37.0-53.0); Hemoglobin 15.5 g/dL (13.5-17.5); IMMATURE GRAN ABSOLUTE AUTO 0.02 K/mm3 (0.00-0.10); IMMATURE GRAN PERCENT AUTO 0 % (0-1); LYMPHOCYTES ABSOLUTE AUTO 2.39 K/mm3 (0.84-5.20); LYMPHOCYTES PERCENT AUTO 25 % (21-46); MONOCYTES ABSOLUTE AUTO 0.51 K/mm3 (0.16-1.47); MONOCYTES PERCENT AUTO 5 % (4-13); Mean Corpuscular HGB 29.2 pg (26.0-34.0); Mean Corpuscular HGB Conc 33.3 g/dL (31.5-36.5); Mean Corpuscular Volume 88 fL (80-100); Mean Platelet Volume 9.8 fL (9.1-12.4); NEUTROPHILS ABSOLUTE AUTO 6.29 K/mm3 (1.96-9.15); NEUTROPHILS PERCENT AUTO 66 % (41-73); Platelet Count 306 K/mm3 (150-400); RDW Coefficient Variation 12.6 % (11.7-14.2); RDW Standard Deviation 40.9 fL (35.1-46.3); White Blood Cell Count 9.46 K/mm3 (4.00-11.30)
[2024-02-02 18:04] LABS: Albumin, Blood 4.9 g/dL (3.4-5.0); Albumin/Globulin Ratio 1.4 (0.8-1.8); Bilirubin, Total 0.5 mg/dL (0.1-1.0); Bun/Creatinine Ratio 11.2 (12.0-20.0); Creatinine, Blood 1.07 mg/dL (0.60-1.20); Globulin, Blood 3.4 g/dL (2.2-4.0); Potassium, Blood 4.5 mmol/L (3.5-5.5); Total Protein, Blood 8.3 g/dL (6.4-8.2)
== END | disposition home or self-care (01) ==
LOC: LAB SHORT 17:49 → LAB 17:49
PROVIDERS: Physician Assistant
DX: R10.9 Unspecified abdominal pain (principal)
CPT/HCPCS: 80053; 83690; 85025

== ENCOUNTER 2024-02-12 10:38 | Emergency (ER) | payer MEDICARE, OTHER ==
[~2024-02-12] VITALS: Ht 182.9 cm; Wt 56.7 kg
[2024-02-12 10:54] VITALS: BP 132/82
[2024-02-12 11:31] LABS: BASOPHILS ABSOLUTE AUTO 0.07 K/mm3 (0.00-0.23); BASOPHILS PERCENT AUTO 1 % (0-2); EOSINOPHILS PERCENT AUTO 4 % (0-6); Hematocrit 43.7 % (37.0-53.0); Hemoglobin 14.9 g/dL (13.5-17.5); IMMATURE GRAN PERCENT AUTO 0 % (0-1); LYMPHOCYTES ABSOLUTE AUTO 1.93 K/mm3 (0.84-5.20); LYMPHOCYTES PERCENT AUTO 34 % (21-46); MONOCYTES ABSOLUTE AUTO 0.42 K/mm3 (0.16-1.47); MONOCYTES PERCENT AUTO 7 % (4-13); Mean Corpuscular HGB Conc 34.1 g/dL (31.5-36.5); Mean Corpuscular Volume 88 fL (80-100); Mean Platelet Volume 10.1 fL (9.1-12.4); NEUTROPHILS ABSOLUTE AUTO 3.12 K/mm3 (1.96-9.15); NEUTROPHILS PERCENT AUTO 54 % (41-73); Platelet Count 251 K/mm3 (150-400); RDW Coefficient Variation 12.3 % (11.7-14.2); RDW Standard Deviation 40.1 fL (35.1-46.3); Red Blood Cell Count 4.96 M/mm3 (4.30-5.90); White Blood Cell Count 5.74 K/mm3 (4.00-11.30)
[2024-02-12 11:51] LABS: Albumin, Blood 4.2 g/dL (3.4-5.0); Albumin/Globulin Ratio 1.3 (0.8-1.8); Bilirubin, Total 0.8 mg/dL (0.1-1.0); Calcium, Blood 9.6 mg/dL (8.5-10.1); Globulin, Blood 3.3 g/dL (2.2-4.0); Potassium, Blood 4.8 mmol/L (3.5-5.5); Total Protein, Blood 7.5 g/dL (6.4-8.2)
== END 2024-02-12 12:46 | disposition left against medical advice (07) ==
LOC: ER 10:38
PROVIDERS: Physician Assistant
DX: R11.2 Nausea with vomiting, unspecified (principal); R10.9 Unspecified abdominal pain; Z53.29 Procedure and treatment not carried out because of patient's decision for other reasons
CPT/HCPCS: 80053; 83690; 85025; 99281

== ENCOUNTER → 2024-04-20 | Outpatient (CLI) | payer MEDICARE, OTHER ==
[2024-04-20 10:11] LABS: Albumin, Blood 4.4 g/dL (3.4-5.0); Albumin/Globulin Ratio 1.5 (0.8-1.8); Bilirubin, Direct 0.2 mg/dL (0.0-0.3); Bilirubin, Indirect 0.6 mg/dL (0.1-0.7); Bilirubin, Total 0.8 mg/dL (0.1-1.0); Total Protein, Blood 7.4 g/dL (6.4-8.2)
== END ==
LOC: LAB 09:51 → LAB SHORT 09:51
PROVIDERS: Physician Assistant
DX: F55.8 Abuse of other non-psychoactive substances (principal)
CPT/HCPCS: 80076

== ENCOUNTER 2024-04-26 09:58 | Emergency (ER) | payer MEDICARE, OTHER ==
[~2024-04-26] VITALS: Ht 182.9 cm; Wt 57.1 kg
[2024-04-26 10:43] LABS: BASOPHILS ABSOLUTE AUTO 0.08 K/mm3 (0.00-0.23); BASOPHILS PERCENT AUTO 1 % (0-2); EOSINOPHILS PERCENT AUTO 4 % (0-6); Hematocrit 44.3 % (37.0-53.0); IMMATURE GRAN ABSOLUTE AUTO 0.01 K/mm3 (0.00-0.10); IMMATURE GRAN PERCENT AUTO 0 % (0-1); LYMPHOCYTES ABSOLUTE AUTO 1.94 K/mm3 (0.84-5.20); LYMPHOCYTES PERCENT AUTO 35 % (21-46); MONOCYTES ABSOLUTE AUTO 0.42 K/mm3 (0.16-1.47); MONOCYTES PERCENT AUTO 8 % (4-13); Mean Corpuscular HGB 29.8 pg (26.0-34.0); Mean Corpuscular HGB Conc 33.9 g/dL (31.5-36.5); Mean Corpuscular Volume 88 fL (80-100); Mean Platelet Volume 10.2 fL (9.1-12.4); NEUTROPHILS ABSOLUTE AUTO 2.94 K/mm3 (1.96-9.15); NEUTROPHILS PERCENT AUTO 53 % (41-73); Platelet Count 254 K/mm3 (150-400); RDW Coefficient Variation 12.6 % (11.7-14.2); RDW Standard Deviation 40.6 fL (35.1-46.3); Red Blood Cell Count 5.04 M/mm3 (4.30-5.90); White Blood Cell Count 5.59 K/mm3 (4.00-11.30)
[2024-04-26 11:14] LABS: Albumin, Blood 4.2 g/dL (3.4-5.0); Albumin/Globulin Ratio 1.4 (0.8-1.8); Bilirubin, Total 0.9 mg/dL (0.1-1.0); Bun/Creatinine Ratio 10.4 (12.0-20.0); Calcium, Blood 8.9 mg/dL (8.5-10.1); Creatinine, Blood 0.87 mg/dL (0.60-1.20); Globulin, Blood 3.1 g/dL (2.2-4.0); Potassium, Blood 4.5 mmol/L (3.5-5.5); Total Protein, Blood 7.3 g/dL (6.4-8.2)
[2024-04-26 11:22] VITALS: BP 123/80
[2024-04-26 11:26] LABS: Source, Urine Clean Catch
[2024-04-26 11:30] LABS: Appearance, Urine Clear (Clear); Bilirubin, Urine Neg (Neg); Blood, Urine Neg (Neg); Color, Urine Yellow (P-Yellow); Glucose Qualitative, Urine Neg (Neg); Ketones, Urine Neg (Neg); Leukocyte Esterase, Urine Neg (Neg); Nitrite, Urine Neg (Neg); Protein, Urine Neg (Neg); Urobilinogen, Urine NORM (Normal)
== END 2024-04-26 12:16 | disposition home or self-care (01) ==
LOC: ER 09:58
PROVIDERS: Physician Assistant
DX: K29.70 Gastritis, unspecified, without bleeding (principal); Z59.89 Other problems related to housing and economic circumstances; Z88.0 Allergy status to penicillin; Z88.8 Allergy status to other drugs, medicaments and biological substances; Z79.899 Other long term (current) drug therapy
CPT/HCPCS: 76705; 80053; 81003; 83690; 85025; 99284-25

== ENCOUNTER 2024-05-09 18:38 | Emergency (ER) | payer MEDICARE, OTHER ==
[~2024-05-09] VITALS: Ht 182.9 cm; Wt 57.1 kg
[2024-05-09 18:50] VITALS: BP 129/106
[2024-05-09 19:22] LABS: CORONAVIRUS COVID-19 AG Negative (NEGATIVE); INFLUENZA A AG Negative (NEGATIVE); INFLUENZA B AG Negative (NEGATIVE)
== END 2024-05-09 19:09 | disposition left against medical advice (07) ==
LOC: ER 18:38
PROVIDERS: Student in an Organized Health Care Education/Training Program
DX: J34.89 Other specified disorders of nose and nasal sinuses (principal); R51.9 Headache, unspecified; R05.9 Cough, unspecified; R09.89 Other specified symptoms and signs involving the circulatory and respiratory systems; G43.909 Migraine, unspecified, not intractable, without status migrainosus; K58.9 Irritable bowel syndrome, unspecified; Z53.29 Procedure and treatment not carried out because of patient's decision for other reasons; Z88.0 Allergy status to penicillin; Z88.8 Allergy status to other drugs, medicaments and biological substances; Z79.899 Other long term (current) drug therapy
CPT/HCPCS: 71046; 87428-QW; 99282-25

== ENCOUNTER 2024-06-06 08:45 | Emergency (ER) | payer MEDICARE, OTHER ==
[~2024-06-06] VITALS: Ht 182.9 cm; Wt 56.2 kg
[2024-06-06] MEDS ORDERED: DiphenhydrAMINE HCl 50 MG/ML 1ML Vial IV ONE (09:30)
[2024-06-06] MEDS ORDERED: Dexamethasone Sod Phos 10 MG/ML 1ML VIAL IV ONE (09:30)
[2024-06-06] MEDS ORDERED: Metoclopramide HCl 5MG / ML 2ML Vial IV ONE (09:30)
[2024-06-06] MEDS ORDERED: Ketorolac Tromethamine 15mg Vial IV ONE (09:30)
[2024-06-06 10:32] LABS: BASOPHILS ABSOLUTE AUTO 0.07 K/mm3 (0.00-0.23); BASOPHILS PERCENT AUTO 1 % (0-2); EOSINOPHILS ABSOLUTE AUTO 0.24 K/mm3 (0.00-0.68); EOSINOPHILS PERCENT AUTO 4 % (0-6); Hematocrit 44.3 % (37.0-53.0); Hemoglobin 15.2 g/dL (13.5-17.5); IMMATURE GRAN ABSOLUTE AUTO 0.01 K/mm3 (0.00-0.10); IMMATURE GRAN PERCENT AUTO 0 % (0-1); LYMPHOCYTES ABSOLUTE AUTO 1.98 K/mm3 (0.84-5.20); LYMPHOCYTES PERCENT AUTO 34 % (21-46); MONOCYTES ABSOLUTE AUTO 0.44 K/mm3 (0.16-1.47); MONOCYTES PERCENT AUTO 8 % (4-13); Mean Corpuscular HGB 30.2 pg (26.0-34.0); Mean Corpuscular HGB Conc 34.3 g/dL (31.5-36.5); Mean Corpuscular Volume 88 fL (80-100); Mean Platelet Volume 9.9 fL (9.1-12.4); NEUTROPHILS ABSOLUTE AUTO 3.16 K/mm3 (1.96-9.15); NEUTROPHILS PERCENT AUTO 53 % (41-73); Platelet Count 261 K/mm3 (150-400); RDW Coefficient Variation 12.6 % (11.7-14.2); RDW Standard Deviation 40.6 fL (35.1-46.3); Red Blood Cell Count 5.04 M/mm3 (4.30-5.90)
[2024-06-06] MEDS ORDERED: EXCEDRIN (10:53)
[2024-06-06] MEDS ORDERED: HYDR1TAB94 (10:54)
[2024-06-06] MEDS ORDERED: ZEBUTAL 50-3251 EAC1 (10:54)
[2024-06-06 10:55] LABS: Source, Urine Clean Catch
[2024-06-06 10:59] LABS: Appearance, Urine Clear (Clear); Bilirubin, Urine Neg (Neg); Blood, Urine Neg (Neg); Color, Urine Yellow (P-Yellow); Glucose Qualitative, Urine Neg (Neg); Ketones, Urine Neg (Neg); Leukocyte Esterase, Urine Neg (Neg); Nitrite, Urine Neg (Neg); Protein, Urine Neg (Neg); Specific Gravity, Urine 1.015 (1.003-1.022); Urobilinogen, Urine NORM (Normal)
[2024-06-06 11:14] VITALS: BP 131/80
[2024-06-06 11:14] LABS: International Normalized Ratio 1.1; Prothrombin Time Results 11.7 Sec (9.7-11.5)
[2024-06-06] MEDS ORDERED: ZOLOFT10013 PO (11:15)
[2024-06-06] MEDS ORDERED: ALPRAZOLAM0.5 M1 PO (11:15)
[2024-06-06 11:16] LABS: Alanine Aminotransfer (ALT/SGP 35 U/L (12-78); Albumin, Blood 4.5 g/dL (3.4-5.0); Albumin/Globulin Ratio 1.6 (0.8-1.8); Alk Phos 49 U/L (50-136); Anion Gap 12 mmol/L (3-11); Aspartate Aminotrans (AST/SGOT 23 U/L (12-37); Bilirubin, Total 0.9 mg/dL (0.1-1.0); Blood Urea Nitrogen 13 mg/dL (8-24); CO2, Blood 28 mmol/L (21-32); Chloride, Blood 105 mmol/L (98-108); Creatinine, Blood 0.87 mg/dL (0.60-1.20); Globulin, Blood 2.8 g/dL (2.2-4.0); Glomerular Filtration Rate 118 (60-); Glucose, Blood 95 mg/dL (70-99); Potassium, Blood 4.7 mmol/L (3.5-5.5); Sodium, Blood 140 mmol/L (136-145); Total Protein, Blood 7.3 g/dL (6.4-8.2)
[2024-06-06 11:17] LABS: Acetaminophen, Random <2.0 ug/mL (10.0-30.0)
== END 2024-06-06 11:48 | disposition home or self-care (01) ==
LOC: ER 08:45
PROVIDERS: Emergency Medicine
DX: G43.909 Migraine, unspecified, not intractable, without status migrainosus (principal); Z03.6 Encounter for observation for suspected toxic effect from ingested substance ruled out; Z88.0 Allergy status to penicillin; Z88.8 Allergy status to other drugs, medicaments and biological substances; Z79.899 Other long term (current) drug therapy
CPT/HCPCS: 80053; 81003; 85025; 85610; 99283; G0480

== ENCOUNTER 2024-10-02 15:25 | Emergency (ER) | payer MEDICARE, OTHER ==
[~2024-10-02] VITALS: Ht 182.9 cm; Wt 56.0 kg
[~2024-10-02 15:25] MED LIST changes: +ALPRAZOLAM0.5 M1 PO; +EXCEDRIN; +HYDR1TAB94; +ZEBUTAL 50-3251 EAC1; +ZOLOFT10013 PO
[2024-10-02 15:27] VITALS: BP 130/87
[2024-10-02] MEDS ORDERED: NS 1,000 ML BAG IR SCH (15:35)
[2024-10-02 16:09] LABS: BASOPHILS ABSOLUTE AUTO 0.10 K/mm3 (0.00-0.23); BASOPHILS PERCENT AUTO 1 % (0-2); EOSINOPHILS ABSOLUTE AUTO 0.17 K/mm3 (0.00-0.68); EOSINOPHILS PERCENT AUTO 2 % (0-6); Hematocrit 42.8 % (37.0-53.0); Hemoglobin 15.0 g/dL (13.5-17.5); IMMATURE GRAN ABSOLUTE AUTO 0.02 K/mm3 (0.00-0.10); IMMATURE GRAN PERCENT AUTO 0 % (0-1); LYMPHOCYTES ABSOLUTE AUTO 2.46 K/mm3 (0.84-5.20); LYMPHOCYTES PERCENT AUTO 29 % (21-46); MONOCYTES ABSOLUTE AUTO 0.44 K/mm3 (0.16-1.47); MONOCYTES PERCENT AUTO 5 % (4-13); Mean Corpuscular HGB Conc 35.0 g/dL (31.5-36.5); Mean Corpuscular Volume 86 fL (80-100); NEUTROPHILS ABSOLUTE AUTO 5.42 K/mm3 (1.96-9.15); NEUTROPHILS PERCENT AUTO 63 % (41-73); NRBC ABSOLUTE 0.00 K/mm3 (0.00-0.02); NRBC Auto 0.0 /100 WBC (0.0-0.2); Platelet Count 269 K/mm3 (150-400); RDW Coefficient Variation 12.1 % (11.7-14.2); RDW Standard Deviation 37.9 fL (35.1-46.3)
[2024-10-02 16:32] LABS: Alanine Aminotransfer (ALT/SGP 30.0 U/L (12-78); Albumin, Blood 4.5 g/dL (3.4-5.0); Albumin/Globulin Ratio 1.5 (0.8-1.8); Anion Gap 6.0 mmol/L (3-11); Aspartate Aminotrans (AST/SGOT 17.0 U/L (12-37); Bilirubin, Total 0.6 mg/dL (0.1-1.0); Blood Urea Nitrogen 11.0 mg/dL (8-24); CO2, Blood 29.0 mmol/L (21-32); Calcium, Blood 9.1 mg/dL (8.5-10.1); Chloride, Blood 107.0 mmol/L (98-108); Creatinine, Blood 0.94 mg/dL (0.60-1.20); Globulin, Blood 3.1 g/dL (2.2-4.0); Glucose, Blood 98.0 mg/dL (70-99); Potassium, Blood 3.6 mmol/L (3.5-5.5); Sodium, Blood 138.0 mmol/L (136-145); Total Protein, Blood 7.6 g/dL (6.4-8.2)
== END 2024-10-02 17:23 | disposition left against medical advice (07) ==
LOC: ER 15:25
PROVIDERS: Emergency Medicine
DX: K29.70 Gastritis, unspecified, without bleeding (principal); G43.909 Migraine, unspecified, not intractable, without status migrainosus; Z79.899 Other long term (current) drug therapy; Z88.0 Allergy status to penicillin; Z88.8 Allergy status to other drugs, medicaments and biological substances
CPT/HCPCS: 76700; 80053; 83605; 83690; 85025; 99284-25; J7030

== ENCOUNTER 2024-12-25 08:58 | Emergency (ER) | payer MEDICARE, OTHER | END 2024-12-25 12:17 | disposition home or self-care (01) | LOC: ER 08:58 | DX: R10.31 Right lower quadrant pain (principal); Z88.0 Allergy status to penicillin; Z88.8 Allergy status to other drugs, medicaments and biological substances; Z79.899 Other long term (current) drug therapy; Z59.89 Other problems related to housing and economic circumstances ==